=== PATIENT | male | born 1975 | race African-American/Black ===

== ENCOUNTER 2021-02-12 17:45 | Emergency (ER) | payer OTHER ==
[~2021-02-12] VITALS: Ht 170.2 cm; Wt 61.4 kg
[2021-02-12 19:28] VITALS: BP 139/95
== END 2021-02-12 20:15 | disposition home or self-care (01) ==
LOC: EMS 17:45
DX: L03.811 Cellulitis of head [any part, except face] (principal)
CPT/HCPCS: 99283; Z7502

== ENCOUNTER 2021-11-19 10:29 | Emergency (ER) | payer OTHER ==
[~2021-11-19] VITALS: Ht 170.2 cm; Wt 61.4 kg
[2021-11-19] MEDS ORDERED: KETOROLAC TROMETHAMINE 60 MG/2 ML VIAL IM ONE (12:30)
[2021-11-19] MEDS ORDERED: ALBUTEROL SULFATE HFA 90 MCG/PUFF 8 GM INHALER IH ONE (14:00)
[2021-11-19 14:15] VITALS: BP 147/74
== END 2021-11-19 14:17 | disposition home or self-care (01) ==
LOC: EMS 10:32
DX: J98.01 Acute bronchospasm (principal); R07.89 Other chest pain; Z20.822 Contact with and (suspected) exposure to COVID-19
CPT/HCPCS: 71045; 94640; 96372; 99283; J1885; J3535

== ENCOUNTER 2022-01-07 23:26 | Emergency (ER) | payer OTHER ==
[~2022-01-07] VITALS: Ht 170.2 cm; Wt 61.0 kg
[2022-01-07] MEDS ORDERED: ALBU8HFA IH (23:44)
[2022-01-08] MEDS ORDERED: ALBU8HFA IH (00:58)
[2022-01-08] MEDS ORDERED: ACET-66 PO (00:58)
[2022-01-08] MEDS ORDERED: GUAIFDM PO (00:58)
[2022-01-08] MEDS ORDERED: ALBUTEROL SULFATE HFA 90 MCG/PUFF 8 GM INHALER IH ONE (01:00)
[2022-01-08] MEDS ORDERED: GuaiFENesin/D-METHORPHAN [SUGAR-FREE] 200-20MG/10 ML SYRUP UDCUP PO ONE (01:00)
[2022-01-08 01:48] VITALS: BP 172/119
== END 2022-01-08 01:49 | disposition home or self-care (01) ==
LOC: EMS 23:31
DX: J45.901 Unspecified asthma with (acute) exacerbation (principal); F12.90 Cannabis use, unspecified, uncomplicated; Z79.899 Other long term (current) drug therapy
CPT/HCPCS: 94640; 99285; J3535; Z7502; Z7610

== ENCOUNTER 2023-05-24 23:37 | Emergency (ER) | payer OTHER ==
[~2023-05-24] VITALS: Ht 170.2 cm; Wt 6.8 kg
[~2023-05-24 23:37] MED LIST: ACET-66 PO; ALBU18HF12 IH; GUAIFDM PO
[2023-05-24 23:51] VITALS: TEMP 98.1
[2023-05-25] MEDS ORDERED: TOBRAMYCIN/DEXAMETHASONE 5 ML OPHTHALMIC SUSPENSION OS ONE (01:45)
[2023-05-25 02:09] VITALS: BP 158/78; PULSE 71; RESP 18
== END 2023-05-25 02:36 | disposition home or self-care (01) ==
LOC: EMS 23:37
DX: H10.9 Unspecified conjunctivitis (principal); J45.909 Unspecified asthma, uncomplicated; F17.210 Nicotine dependence, cigarettes, uncomplicated; F12.90 Cannabis use, unspecified, uncomplicated; Z88.0 Allergy status to penicillin
CPT/HCPCS: 99282; Z7502; Z7610

== ENCOUNTER 2024-08-03 20:04 | Emergency (ER) | payer OTHER ==
[~2024-08-03] VITALS: Ht 170.2 cm; Wt 63.6 kg
[2024-08-03 20:07] VITALS: TEMP 98.5
[2024-08-03 20:47] LABS: BASOPHILS % (AUTO) 0.5 % (0.0-2.0); EOSINOPHILS % (AUTO) 8.4 % (1.0-6.0); HEMATOCRIT 42.1 % (41-53); HEMOGLOBIN 13.8 g/dL (13.5-17.5); LYMPHOCYTES # (AUTO) 1.8 K/uL (1.0-4.8); LYMPHOCYTES % (AUTO) 27.5 % (22.0-44.0); MEAN CORPUSCULAR HEMOGLOBIN 33.9 pg (26.0-34.0); MEAN CORPUSCULAR HGB CONC 32.7 G/dL (31.0-37.0); MEAN CORPUSCULAR VOLUME 104 fL (80-100); MONOCYTES # (AUTO) 0.4 K/uL (0.1-1.0); MONOCYTES % (AUTO) 6.5 % (2.0-9.0); NEUTROPHILS # (AUTO) 3.7 K/uL (1.8-7.7); NEUTROPHILS % (AUTO) 57.1 % (40.0-70.0); PLATELET COUNT (AUTO) 254 K/uL (150-450); RED BLOOD CELL COUNT(AUTO) 4.06 MIL/uL (4.50-5.90); RED CELL DISTRIBUTION WIDTH 13.2 % (11.5-14.5); WHITE BLOOD COUNT (AUTO) 6.5 K/uL (4.5-11.0)
[2024-08-03 20:53] LABS: ANION GAP 9 mmol/L (8-16); CALCIUM, TOTAL 8.7 mg/dL (8.8-10.5); CARBON DIOXIDE 28 mmol/L (22-29); CHLORIDE 105 mmol/L (98-107); CREATININE 1.02 mg/dL (0.60-1.30); GLOMERULAR FILTR. RATE CALC > 60 mL/min (>60); GLUCOSE,RANDOM 87 mg/dL (70-110); POTASSIUM 3.8 mmol/L (3.5-5.1); SODIUM SERUM 142 mmol/L (136-145); UREA NITROGEN, BLOOD 12 mg/dL (7-18)
[2024-08-03 21:05] LABS: B-TYPE NATRIURETIC PEPTIDE 990 pg/mL (0-100)
[2024-08-04 00:02] LABS: TROPONIN I-HIGH SENSITIVITY 86 ng/L (<76)
[2024-08-04] MEDS: CLINDAMYCIN HCL 150 MG CAPSULE PO ONE (01:33)
[2024-08-04 02:30] VITALS: BP 122/76; PULSE 83; RESP 16; O2SAT 99
[2024-08-04] MEDS ORDERED: CLIN-142 PO (02:59)
== END 2024-08-04 03:03 | disposition left against medical advice (07) ==
LOC: EMS 20:04
DX: I11.0 Hypertensive heart disease with heart failure (principal); I50.9 Heart failure, unspecified; R22.43 Localized swelling, mass and lump, lower limb, bilateral; J45.909 Unspecified asthma, uncomplicated; F17.210 Nicotine dependence, cigarettes, uncomplicated; F12.90 Cannabis use, unspecified, uncomplicated; Z88.0 Allergy status to penicillin
CPT/HCPCS: 71045; 80048; 83880; 84484; 85025; 93005; 99285; 36415-L1; 36415-TC

== ENCOUNTER 2024-08-08 11:45 | Emergency (ER) | payer OTHER ==
[~2024-08-08] VITALS: Ht 170.2 cm; Wt 65.9 kg
[~2024-08-08 11:45] MED LIST changes: +CLIN-142 PO
[2024-08-08 11:52] VITALS: TEMP 98
[2024-08-08] MEDS: PROPARACAINE HCL 0.5% 15 ML OPHTHALMIC SOLUTION OD ONE (12:49)
[2024-08-08] MEDS: FLUORESCEIN SODIUM 1 MG STRIP OD ONE (12:49)
[2024-08-08] MEDS ORDERED: OFLO5DRO49 OS (14:09)
[2024-08-08 14:19] VITALS: BP 126/79; PULSE 90; RESP 16; O2SAT 100
[2024-08-08] MEDS: OFLOXACIN 0.3% 5 ML OPHTHALMIC SOLUTION OS ONE (15:13)
== END 2024-08-08 15:23 | disposition home or self-care (01) ==
LOC: EMS 11:45
DX: S05.02XA Injury of conjunctiva and corneal abrasion without foreign body, left eye, initial encounter (principal); J45.909 Unspecified asthma, uncomplicated; F17.210 Nicotine dependence, cigarettes, uncomplicated; F12.90 Cannabis use, unspecified, uncomplicated; Z88.0 Allergy status to penicillin; X58.XXXA Exposure to other specified factors, initial encounter; Y93.89 Activity, other specified; Y92.89 Other specified places as the place of occurrence of the external cause; Y99.0 Civilian activity done for income or pay
CPT/HCPCS: 99283

== ENCOUNTER 2024-08-24 23:35 | Emergency (ER) | payer OTHER ==
[~2024-08-24] VITALS: Ht 170.2 cm; Wt 63.6 kg
[~2024-08-24 23:35] MED LIST changes: -GUAIFDM PO; +OFLO5DRO49 OS
[2024-08-24 23:43] VITALS: BP 123/88; PULSE 88; RESP 18; TEMP 97.8; O2SAT 99
[2024-08-25 00:11] LABS: BASOPHILS % (AUTO) 0.5 % (0.0-2.0); HEMATOCRIT 41.6 % (41-53); HEMOGLOBIN 13.7 g/dL (13.5-17.5); LYMPHOCYTES # (AUTO) 1.6 K/uL (1.0-4.8); LYMPHOCYTES % (AUTO) 21.7 % (22.0-44.0); MEAN CORPUSCULAR HEMOGLOBIN 34.4 pg (26.0-34.0); MEAN CORPUSCULAR HGB CONC 32.8 G/dL (31.0-37.0); MEAN CORPUSCULAR VOLUME 105 fL (80-100); MONOCYTES # (AUTO) 0.6 K/uL (0.1-1.0); MONOCYTES % (AUTO) 8.1 % (2.0-9.0); NEUTROPHILS # (AUTO) 4.9 K/uL (1.8-7.7); NEUTROPHILS % (AUTO) 64.7 % (40.0-70.0); PLATELET COUNT (AUTO) 211 K/uL (150-450); RED BLOOD CELL COUNT(AUTO) 3.96 MIL/uL (4.50-5.90); RED CELL DISTRIBUTION WIDTH 13.7 % (11.5-14.5); WHITE BLOOD COUNT (AUTO) 7.5 K/uL (4.5-11.0)
[2024-08-25 00:20] LABS: ANION GAP 5 mmol/L (8-16); CARBON DIOXIDE 33 mmol/L (22-29); CHLORIDE 103 mmol/L (98-107); CREATININE 1.38 mg/dL (0.60-1.30); GLUCOSE,RANDOM 83 mg/dL (70-110); POTASSIUM 4.4 mmol/L (3.5-5.1); SODIUM SERUM 141 mmol/L (136-145); UREA NITROGEN, BLOOD 17 mg/dL (7-18)
[2024-08-25 00:21] LABS: CALCIUM, TOTAL 8.5 mg/dL (8.8-10.5); GLOMERULAR FILTR. RATE CALC > 60 mL/min (>60)
[2024-08-25 00:32] LABS: B-TYPE NATRIURETIC PEPTIDE 728 pg/mL (0-100)
[2024-08-25 01:04] LABS: TROPONIN I-HIGH SENSITIVITY 48 ng/L (<76)
[2024-08-25] MEDS ORDERED: FLUC150T61 PO (02:09)
[2024-08-25] MEDS ORDERED: CLOT15CR29 TP (02:09)
[2024-08-25] MEDS ORDERED: ASPI81TA87 PO (02:09)
[2024-08-25] MEDS ORDERED: DOXY-354 PO (02:09)
[2024-08-25] MEDS ORDERED: FURO-152 PO (02:09)
[2024-08-25] MEDS ORDERED: POTA8TAB71 PO (02:09)
[2024-08-25] MEDS: FUROSEMIDE 20 MG TABLET PO ONE (02:10)
[2024-08-25] MEDS: DOXYCYCLINE HYCLATE 100 MG TABLET PO ONE (02:11)
[2024-08-25] MEDS ORDERED: CEPHALEXIN MONOHYDRATE 500 MG CAPSULE PO ONE (02:15)
== END 2024-08-25 02:56 | disposition left against medical advice (07) ==
LOC: EMS 23:36
DX: L03.119 Cellulitis of unspecified part of limb (principal); I42.9 Cardiomyopathy, unspecified; R60.0 Localized edema; J45.909 Unspecified asthma, uncomplicated; F12.90 Cannabis use, unspecified, uncomplicated; Z98.890 Other specified postprocedural states; Z79.82 Long term (current) use of aspirin; Z88.0 Allergy status to penicillin
CPT/HCPCS: 71045; 80048; 83880; 84484; 85025; 93005; 99285; 36415-L1; 36415-TC